=== PATIENT | female | born 1965 | race Caucasian/White ===

== ENCOUNTER 2021-03-20 15:04 | Inpatient (IN) | payer OTHER ==
[~2021-03-20] VITALS: Ht 160 cm; Wt 73.9 kg
[~2021-03-20 15:04] MED LIST: CYCLOBENZAPRINE10 MG PO
[2021-03-20 18:15] LABS: HEMOGLOBIN 7.9 gm/dl (12.3-15.3); RED BLOOD COUNT 2.7 M/UL (4.00-5.10); WHITE BLOOD COUNT 9.5 K/UL (4.5-11.0)
[2021-03-20] MEDS ORDERED: ONDANSETRON HCL4 MG PO (21:40)
[2021-03-20] MEDS ORDERED: TIZANIDINE HCL2 MG PO (21:41)
[2021-03-20] MEDS ORDERED: DESYREL 50 MG T50 MG PO (21:42)
[2021-03-20] MEDS ORDERED: ATORVASTATIN CA40 MG PO (21:42)
[2021-03-20] MEDS ORDERED: CLEARLAX119 GM PO (21:42)
[2021-03-20] MEDS ORDERED: FUROSEMIDE20 MG PO (21:43)
[2021-03-20] MEDS ORDERED: GABAPENTIN800 MG PO (21:43)
[2021-03-20] MEDS ORDERED: HYDROCODON-ACE1 EAC6 PO (21:44)
[2021-03-20] MEDS ORDERED: HYDROXYZINE PAM25 MG PO (21:44)
[2021-03-20] MEDS ORDERED: MEDROXYPROGESTE10 MG PO (21:45)
[2021-03-20] MEDS ORDERED: LEVOTHYROXINE75 MCG PO (21:45)
[2021-03-20] MEDS ORDERED: IBUPROFEN800 MG PO (21:45)
[2021-03-20] MEDS ORDERED: MEGESTROL400 MG/12 PO (21:46)
[2021-03-20] MEDS ORDERED: POTASSIUM CHLO10 ME1 PO (21:47)
[2021-03-20] MEDS ORDERED: MELATONIN5 M2 PO (21:47)
[2021-03-20] MEDS ORDERED: XYLOCAINE 5% OI35 GM TOP (21:48)
[2021-03-20] MEDS ORDERED: VITAMIN D21250 MCG PO (21:48)
[2021-03-20] MEDS ORDERED: STOOL SOFTENER100 MG PO (21:48)
[2021-03-20] MEDS ORDERED: HUMALOG100 UNIT/3 SC (21:49)
[2021-03-21 07:19] LABS: WHITE BLOOD COUNT 7.3 K/UL (4.5-11.0)
[2021-03-21 07:25] LABS: RED BLOOD COUNT 2.04 M/UL (4.00-5.10)
[2021-03-21 07:26] LABS: HEMOGLOBIN 5.8 gm/dl (12.3-15.3)
[2021-03-22 07:44] LABS: HEMOGLOBIN 9.2 gm/dl (12.3-15.3)
[2021-03-22 07:56] LABS: RED BLOOD COUNT 3.14 M/UL (4.00-5.10); WHITE BLOOD COUNT 10.5 K/UL (4.5-11.0)
[2021-03-23 06:38] LABS: WHITE BLOOD COUNT 9.6 K/UL (4.5-11.0)
[2021-03-23 06:40] LABS: RED BLOOD COUNT 2.52 M/UL (4.00-5.10)
[2021-03-23 06:41] LABS: HEMOGLOBIN 7.2 gm/dl (12.3-15.3)
[2021-03-24 07:49] LABS: RED BLOOD COUNT 2.24 M/UL (4.00-5.10); WHITE BLOOD COUNT 9.4 K/UL (4.5-11.0)
[2021-03-24 07:50] LABS: HEMOGLOBIN 6.5 gm/dl (12.3-15.3)
[2021-03-25 06:28] LABS: HEMOGLOBIN 8.2 gm/dl (12.3-15.3); WHITE BLOOD COUNT 10.2 K/UL (4.5-11.0)
[2021-03-25 06:30] LABS: RED BLOOD COUNT 2.78 M/UL (4.00-5.10)
[2021-03-26 06:11] LABS: RED BLOOD COUNT 3.03 M/UL (4.00-5.10); WHITE BLOOD COUNT 11.1 K/UL (4.5-11.0)
[2021-03-26] MEDS ORDERED: FERROUS SULFAT325 M2 PO (13:02)
[2021-03-26] MEDS ORDERED: GABAPENTIN300 MG PO (13:02)
[2021-03-26] MEDS ORDERED: ENOXAPARIN40 MG/0.4 SC (13:02)
[2021-03-26] MEDS ORDERED: CARVEDILOL12.5 MG PO (13:02)
[2021-03-26] MEDS ORDERED: DESYREL 50 MG T50 MG PO (13:02)
== END 2021-03-26 12:57 | disposition home health service (06) | DRG 522 ==
LOC: ER1 15:04 → CDU 17:54 → M/S 17:54
PROVIDERS: Family Medicine; Internal Medicine; Orthopaedic Surgery; Physician Assistant; ADMIT Internal Medicine
PROC: 0SRS0J9 Replacement of Left Hip Joint, Femoral Surface with Synthetic Substitute, Cemented, Open Approach (ICD-10-PCS; principal; 2021-03-22 08:00)
PROC: 30233N1 Transfusion of Nonautologous Red Blood Cells into Peripheral Vein, Percutaneous Approach (ICD-10-PCS; 2021-03-24)
DX: S72.092A Other fracture of head and neck of left femur, initial encounter for closed fracture (principal); D62 Acute posthemorrhagic anemia; E87.0 Hyperosmolality and hypernatremia; Z20.822 Contact with and (suspected) exposure to COVID-19; E11.42 Type 2 diabetes mellitus with diabetic polyneuropathy; E03.9 Hypothyroidism, unspecified; G89.29 Other chronic pain; I12.9 Hypertensive chronic kidney disease with stage 1 through stage 4 chronic kidney disease, or unspecified chronic kidney disease; N18.30 Chronic kidney disease, stage 3 unspecified; I87.8 Other specified disorders of veins; F17.210 Nicotine dependence, cigarettes, uncomplicated; I87.2 Venous insufficiency (chronic) (peripheral); W01.0XXA Fall on same level from slipping, tripping and stumbling without subsequent striking against object, initial encounter; E78.5 Hyperlipidemia, unspecified; Z83.3 Family history of diabetes mellitus; Z56.0 Unemployment, unspecified; Z98.891 History of uterine scar from previous surgery; Z79.4 Long term (current) use of insulin
CPT/HCPCS: 36415; 71045; 72170; 73502; 73552; 80048; 80053; 82009; 82607; 82728; 82746; 82962; 83036; 83540; 83550; 83735; 83880; 84100; 84439; 84443; 85014; 85018; 85025; 85027; 85610; 85730; 86850; 86900; 86901; 86920; 93005; 96374; 97110; 97110-GP-CQ; 97161; 97166; 97530; 97530-GP-CQ; 99284; C1776; J0360; J0690; J1100; J1170; J1650; J1756; J1940; J2001; J2250; J2270; J2370; J2405; J2550; J2704; J2795; J3010; J7030; P9016; U0002

== ENCOUNTER 2021-03-27 18:01 | Inpatient (IN) | payer OTHER ==
[~2021-03-27] VITALS: Ht 160 cm; Wt 59.9 kg
[~2021-03-27 18:01] MED LIST changes: +ATORVASTATIN CA40 MG PO; +CARVEDILOL12.5 MG PO; +CLEARLAX119 GM PO; +DESYREL 50 MG T50 MG PO; +ENOXAPARIN40 MG/0.4 SC; +FERROUS SULFAT325 M2 PO; +FUROSEMIDE20 MG PO; +GABAPENTIN300 MG PO; +GABAPENTIN800 MG PO; +HUMALOG100 UNIT/3 SC; +HYDROCODON-ACE1 EAC6 PO; +HYDROXYZINE PAM25 MG PO; +IBUPROFEN800 MG PO; +LEVOTHYROXINE75 MCG PO; +MEDROXYPROGESTE10 MG PO; +MEGESTROL400 MG/12 PO; +MELATONIN5 M2 PO; +ONDANSETRON HCL4 MG PO; +POTASSIUM CHLO10 ME1 PO; +STOOL SOFTENER100 MG PO; +TIZANIDINE HCL2 MG PO; +VITAMIN D21250 MCG PO; +XYLOCAINE 5% OI35 GM TOP
[2021-03-27 19:12] LABS: HEMOGLOBIN 10.5 gm/dl (12.3-15.3)
[2021-03-27 19:26] LABS: RED BLOOD COUNT 3.54 M/UL (4.00-5.10); WHITE BLOOD COUNT 14.7 K/UL (4.5-11.0)
[2021-03-27 19:41] LABS: BUN/CREATININE RATIO 27 (0-10)
[2021-03-28] MEDS ORDERED: GABAPENTIN800 MG PO (01:06)
[2021-03-28] MEDS ORDERED: HYDROXYZINE PAM25 MG PO (01:08)
[2021-03-28 07:03] LABS: HEMOGLOBIN 9.4 gm/dl (12.3-15.3); RED BLOOD COUNT 3.23 M/UL (4.00-5.10); WHITE BLOOD COUNT 12.7 K/UL (4.5-11.0)
[2021-03-29 07:52] LABS: RED BLOOD COUNT 2.98 M/UL (4.00-5.10); WHITE BLOOD COUNT 12.7 K/UL (4.5-11.0)
[2021-04-02 06:45] LABS: HEMOGLOBIN 8.5 gm/dl (12.3-15.3); RED BLOOD COUNT 2.97 M/UL (4.00-5.10)
[2021-04-03 06:39] LABS: HEMOGLOBIN 8.1 gm/dl (12.3-15.3); RED BLOOD COUNT 2.79 M/UL (4.00-5.10)
[2021-04-03 06:46] LABS: WHITE BLOOD COUNT 10.4 K/UL (4.5-11.0)
== END 2021-04-03 17:55 | disposition home health service (06) | DRG 556 ==
LOC: ER1 18:01 → M/S 21:34 → CDU 21:34 → M/S 21:34
PROVIDERS: Emergency Medicine; Internal Medicine; ADMIT Family Medicine
DX: M25.552 Pain in left hip (principal); E11.40 Type 2 diabetes mellitus with diabetic neuropathy, unspecified; I12.9 Hypertensive chronic kidney disease with stage 1 through stage 4 chronic kidney disease, or unspecified chronic kidney disease; N18.30 Chronic kidney disease, stage 3 unspecified; E11.22 Type 2 diabetes mellitus with diabetic chronic kidney disease; D72.829 Elevated white blood cell count, unspecified; Z96.642 Presence of left artificial hip joint; Z20.822 Contact with and (suspected) exposure to COVID-19; R53.81 Other malaise; E11.51 Type 2 diabetes mellitus with diabetic peripheral angiopathy without gangrene; I73.9 Peripheral vascular disease, unspecified; R23.8 Other skin changes; I87.2 Venous insufficiency (chronic) (peripheral); E03.9 Hypothyroidism, unspecified; F17.200 Nicotine dependence, unspecified, uncomplicated; Z79.899 Other long term (current) drug therapy
CPT/HCPCS: 36415; 71045; 72170; 80048; 80053; 82962; 83605; 85025; 85027; 85652; 86140; 87040; 93925; 93971; 94640; 94760; 96374; 96375; 96376; 97110; 97110-GP-CQ; 97161; 97166; 97530; 97530-GP-CQ; 99284; J1170; J1885; J2270; J2405; Q0177; U0002

== ENCOUNTER 2021-06-08 13:53 | Inpatient (IN) | payer OTHER ==
[~2021-06-08] VITALS: Ht 157.5 cm; Wt 73.9 kg
[~2021-06-08 13:53] MED LIST changes: -CLEARLAX119 GM PO; -LEVOTHYROXINE75 MCG PO; -MELATONIN5 M2 PO; +MIRALAX 119 GR119 GM PO; -TIZANIDINE HCL2 MG PO
[2021-06-08 15:18] LABS: HEMOGLOBIN 8.8 gm/dl (12.3-15.3); RED BLOOD COUNT 3.07 M/UL (4.00-5.10); WHITE BLOOD COUNT 13.5 K/UL (4.5-11.0)
[2021-06-09] MEDS ORDERED: HYDROXYZINE PAM25 MG PO (01:08)
[2021-06-09 06:12] LABS: HEMOGLOBIN 8.5 gm/dl (12.3-15.3); RED BLOOD COUNT 2.95 M/UL (4.00-5.10); WHITE BLOOD COUNT 15.5 K/UL (4.5-11.0)
[2021-06-09] MEDS ORDERED: KLONOPIN TAB 00.5 MG PO (10:08)
[2021-06-09] MEDS ORDERED: MEGESTROL400 MG/11 PO (10:08)
[2021-06-09] MEDS ORDERED: FUROSEMIDE20 MG PO (10:09)
[2021-06-09] MEDS ORDERED: POTASSIUM CHLO10 ME1 PO (10:10)
[2021-06-09] MEDS ORDERED: AMLODIPINE BESYL5 MG PO (10:11)
--- NOTE | 2021-06-09 15:16 | NUR ---
PT SISTER REPORTS THAT PT HAD KLONOPIN REFILLED ON TUESDAY WHEN [facility]IDRA PICKED HER UP TO BRING TO HOSPITAL PT BOTTLE ROLLED OUT OF COVERS WITH ONLY 1 PILL LEFT.
[2021-06-09] MEDS ORDERED: TIZANIDINE HCL2 MG PO (21:41)
[2021-06-09] MEDS ORDERED: LEVOTHYROXINE75 MCG PO (21:45)
[2021-06-09] MEDS ORDERED: MELATONIN5 M2 PO (21:47)
[2021-06-10 03:14] LABS: WHITE BLOOD COUNT 16.9 K/UL (4.5-11.0)
[2021-06-10 03:35] LABS: HEMOGLOBIN 6.9 gm/dl (12.3-15.3); RED BLOOD COUNT 2.34 M/UL (4.00-5.10)
--- NOTE | 2021-06-10 03:39 | NUR ---
CALLED DR. ESPINOSA WITH CRITICAL HGB OF 6.9. ORDERED TO RECHECK AND IF BELOW 7 TRANSFUSE 1 UNIT PRBC.
[2021-06-10 04:35] LABS: HEMOGLOBIN 6.6 gm/dl (12.3-15.3)
--- NOTE | 2021-06-10 04:37 | NUR ---
NOTIFIED DR. ESPINOSA OF HGB 6.6 ON REPEAT. ORDER TO TYPE AND SCREEN AND TRANSFUSE 1 UNIT PRBC.
--- NOTE | 2021-06-10 05:59 | NUR ---
WAS NOTIFIED THAT BLOOD WAS READY FOR PATIENT. ATTEMPTED TO CALL BOTH OF THE PATIENT'S SISTERS TO OBTAIN CONSENT THE PATIENT IS NOT ALERT AND ORIENTED ENOUGH TO GIVE OR DENY CONSENT.
[2021-06-10 13:26] LABS: HEMOGLOBIN 7.2 gm/dl (12.3-15.3)
[2021-06-10 20:56] LABS: HEMOGLOBIN 10.5 gm/dl (12.3-15.3)
[2021-06-11 03:55] LABS: WHITE BLOOD COUNT 16.4 K/UL (4.5-11.0)
[2021-06-11 03:56] LABS: HEMOGLOBIN 8.4 gm/dl (12.3-15.3); RED BLOOD COUNT 2.88 M/UL (4.00-5.10)
--- NOTE | 2021-06-11 15:05 | NUR ---
MD NOTIFIED OF PT CRYING, IN PAIN MD GAVE ONETIME ORDER FOR HYDROCODONE 5 MG WCTM
[2021-06-12 03:41] LABS: HEMOGLOBIN 8.7 gm/dl (12.3-15.3); RED BLOOD COUNT 2.98 M/UL (4.00-5.10); WHITE BLOOD COUNT 15.4 K/UL (4.5-11.0)
[2021-06-13 03:59] LABS: HEMOGLOBIN 9.1 gm/dl (12.3-15.3); RED BLOOD COUNT 3.08 M/UL (4.00-5.10); WHITE BLOOD COUNT 11.9 K/UL (4.5-11.0)
--- NOTE | 2021-06-13 13:30 | NUR ---
Bilateral dressing change, Santyl and non-adherent pad, wrapped in Kerlix. Patient tolerated well.
--- NOTE | 2021-06-14 17:57 | NUR ---
Dressing change provided to heels bilaterally. Cleaning spray, santyl, vasaline gauze, 4x4, wrapped with kerlix.
--- NOTE | 2021-06-16 14:05 | NUR ---
@[address] ADAIR TO NOTIFIED HER OF PT GFR 44, PT HAS HISTORY IN [place] GFR BEING LOW WELL, DOCUMENTATION FOR CKD STAGE 3 NEEDING PICC LINE PLACEMENT INSTRUCTED TO CONSULT NEPHROLOGY FOR ACUTE VS CHRONIC RENAL FAILURE STAGE 3 NEEDS LINE PLACEMENT FOR ABX. ORDER WAS PLACED IN SYSTEM. WCTM
--- NOTE | 2021-06-16 14:18 | NUR ---
@2644 CALLED AND SPOKE TO DR. CRUZ REGARDING CONSULT AFTER HE SPOKE WITH THE PRIMARY RN LILI. HE STATES THERE IS NO REASON FOR HIS CONSULT TO FOLLOW GUIDELINES FOR PLACING PICC LINE, HE STATES THAT HER GFR LEVEL (44) IS CLOSE TO THE CUT OFF BRADLY (45) AND THAT IT IS OK TO PLACE THE PICC LINE IF SOMEONE IS FOLLOWING HER AN OUTPATIENT TO ASSESS KIDNEY FUNCTION WITH ABX THERAPY. HE INFORMS ME TO NOTIFIY THE PRIMARY MD TO MAKE THE FINAL DECISION ON PLACEMENT BY FOLLOWING GUIDELINES AND TO CANCEL HIS CONSULT. @[address] ADAIR OF THE ABOVE CONVERSATION AND MD STATES TO GO AHEAD WITH PICC LINE PLACEMENT.
--- NOTE | 2021-06-16 15:35 | NUR ---
AFTER SPEAKING WITH DR. ADAIR AND HER GIVING THE ORDER IT WAS OK TO PLACE THE PICC LINE, I WENT TO SPEAK WITH THE PATIENT REGARDING THE PROCEDURE, I BEGAN TO TELL HER ABOUT THE PROCEDURE AND WHY SHE HAD BEEN ORDERED THE PICC LINE BY THE MD, THE PATIENT STATES THAT SHE DOES NOT WANT A PICC LINE PLACED THAT SHE WISHES TO GO TO HER FAMILY MD OFFICE EVERYDAY TO GET HER IV INFUSIONS, I INSTRUCTED HER THAT WASN'T USUALLY AN OPTION, BUT SHE WAS ADAMENT THAT SHE DID NOT WANT A PICC LINE. I INSTRUCTED HER NURSE LILI OF THE PATIENTS DECISION AND SHE CALLED AND NOTIFIED THE [employer] OF THE PATIENTS DECISION SO THE [employer] COULD COME AND SPEAK WITH THE PATIENT, THE PATIENT ALSO SPOKE WITH HER SON REGARDING THE PICC LINE PLACEMENT (I ALSO EXPLAINED THE PICC LINE PROCEDURE TO THE SON), AFTER THE PATIENT SPOKE WITH HER SON AND THE [employer], PER THE [employer] AND THE PRIMARY RN THE PATIENT STATES SHE WILL POSSIBLE GET THE PICC LINE PLACED TOMORROW 05/17/21 WHEN HER FAMILY IS AT THE BEDSIDE, SHE SAID "FOR US TO ASK HER AGAIN IN THE MORNING."
[2021-06-17 03:29] LABS: HEMOGLOBIN 9.5 gm/dl (12.3-15.3); RED BLOOD COUNT 3.22 M/UL (4.00-5.10); WHITE BLOOD COUNT 11.5 K/UL (4.5-11.0)
[2021-06-17] MEDS ORDERED: SANTYL OINT 3030 GM EXT (12:57)
[2021-06-17] MEDS ORDERED: LEVOTHYROXINE100 MCG PO (12:57)
--- NOTE | 2021-06-17 18:00 | NUR ---
ATTEMPTED TO CALL REPORT TO COUNTS INCLUDE 234 BEDS AT THE [facility]. RECEIVED A MESSAGE THAT WAS WORKING OUT OF OFFICE. MESSAGE LEFT AT 1610. NO RETURN CALL.
== END 2021-06-17 19:08 | disposition home health service (06) | DRG 570 ==
LOC: ER1 13:53 → M/S 16:33 → CDU 16:33 → M/S 18:27
PROVIDERS: Internal Medicine; Physician Assistant; Podiatrist Foot & Ankle Surgery; ADMIT Internal Medicine Infectious Disease
PROC: 30233N1 Transfusion of Nonautologous Red Blood Cells into Peripheral Vein, Percutaneous Approach (ICD-10-PCS; principal; 2021-06-10 16:00)
PROC: 02HV33Z Insertion of Infusion Device into Superior Vena Cava, Percutaneous Approach (ICD-10-PCS; 2021-06-17)
PROC: 0JBP0ZZ Excision of Left Lower Leg Subcutaneous Tissue and Fascia, Open Approach (ICD-10-PCS; 2021-06-17)
PROC: 0JBN0ZZ Excision of Right Lower Leg Subcutaneous Tissue and Fascia, Open Approach (ICD-10-PCS; 2021-06-17)
DX: L89.620 Pressure ulcer of left heel, unstageable (principal); G92.8 Other toxic encephalopathy; N30.00 Acute cystitis without hematuria; Z20.822 Contact with and (suspected) exposure to COVID-19; N17.9 Acute kidney failure, unspecified; I96 Gangrene, not elsewhere classified; E11.52 Type 2 diabetes mellitus with diabetic peripheral angiopathy with gangrene; M86.18 Other acute osteomyelitis, other site; E44.0 Moderate protein-calorie malnutrition; L89.610 Pressure ulcer of right heel, unstageable; E11.40 Type 2 diabetes mellitus with diabetic neuropathy, unspecified; I12.9 Hypertensive chronic kidney disease with stage 1 through stage 4 chronic kidney disease, or unspecified chronic kidney disease; N18.30 Chronic kidney disease, stage 3 unspecified; E11.22 Type 2 diabetes mellitus with diabetic chronic kidney disease; B96.5 Pseudomonas (aeruginosa) (mallei) (pseudomallei) as the cause of diseases classified elsewhere; B96.1 Klebsiella pneumoniae [K. pneumoniae] as the cause of diseases classified elsewhere; B95.62 Methicillin resistant Staphylococcus aureus infection as the cause of diseases classified elsewhere; F17.210 Nicotine dependence, cigarettes, uncomplicated; E86.0 Dehydration; E11.621 Type 2 diabetes mellitus with foot ulcer; E11.649 Type 2 diabetes mellitus with hypoglycemia without coma; E03.9 Hypothyroidism, unspecified; Z96.642 Presence of left artificial hip joint; E78.5 Hyperlipidemia, unspecified; Z79.4 Long term (current) use of insulin; Z74.01 Bed confinement status; Z79.899 Other long term (current) drug therapy; Z83.3 Family history of diabetes mellitus; Z68.29 Body mass index [BMI] 29.0-29.9, adult
CPT/HCPCS: 0240U; 36415; 36430; 36600; 51701; 70450; 71045; 73502; 78315; 80048; 80053; 80202; 81001; 82140; 82550; 82553; 82803; 82962; 83036; 83605; 83690; 83735; 83880; 84439; 84443; 84484; 85014; 85018; 85025; 85652; 86140; 86850; 86900; 86901; 86920; 87040; 87070; 87077; 87086; 87186; 87205; 93005; 93970; 96374; 96375; 97110; 97110-GP-CQ; 97162; 97166; 97530; 97530-GP-CQ; 99285; A9503; C1751; J0696; J0713; J1650; J2001; J2405; J2543; J2704; J3010; J3370; J7030; J7040; J7050; J7070; J7120; P9016